=== PATIENT | female | born 1985 | race Hispanic/Latino ===

== ENCOUNTER 2024-12-03 15:32 | Outpatient (CLI) | payer OTHER ==
[~2024-12-03 15:32] MED LIST: Iopamidol 300 61% 100 ML VIAL FS ONE
== END 2024-12-03 15:33 | disposition home or self-care (01) ==
LOC: CSHCT 15:32
PROVIDERS: ATTEND Physician Assistant Medical
DX: K57.92 Diverticulitis of intestine, part unspecified, without perforation or abscess without bleeding (principal); R10.32 Left lower quadrant pain; G89.29 Other chronic pain; N83.201 Unspecified ovarian cyst, right side; K42.9 Umbilical hernia without obstruction or gangrene
CPT/HCPCS: 74177; Q9967